=== PATIENT | male | born 1965 ===

== ENCOUNTER 2017-01-03 11:52 | Emergency (ER) | payer SELFPAY ==
[2017-01-03 12:11] VITALS: BP 124/84; PULSE 64; RESP 18; TEMP 97.7; O2SAT 98
[2017-01-03] MEDS ORDERED: Lidocaine 2% Inj (20ml) INFIL STA (12:16)
[2017-01-03] MEDS ORDERED: Tetanus/Diphtheria Toxoids 0.5 ml Syringe IM ONE ×2 (12:16→13:46)
[2017-01-03] MEDS ORDERED: Bacitracin 500 Units/gm Oint Foilpak UD TOP STA (12:17)
[2017-01-03] MEDS ORDERED: Lidocaine 1% Inj (20ml) ONE ×2 (12:47→13:25)
[2017-01-03] MEDS ORDERED: Bacitracin 500 Units/gm Oint Foilpak UD ONE (12:48)
--- NOTE | 2017-01-03 14:03 | C.PDOC ---
History Of Present Illness 51 year old male who presents to the ER for lacerations to his left forearm and right elbow area after a glass window fell on his arms. Patient denies any weakness or numbness of the extremities. Chief Complaint (Nursing): Abnormal Skin Integrity History Per: Patient History/Exam Limitations: no limitations Onset/Duration Of Symptoms: Hrs Current Symptoms Are (Timing): Still Present Location Of Injury: Right: Elbow, Left: Arm Quality Of Symptoms: Other (Laceration) Recent travel outside of the [place]: No Past Medical History Reviewed: Historical Data, Nursing Documentation, Vital Signs Vital Signs: Last Vital Signs Temp 97.7 F 01/03/17 11:57 Pulse 64 01/03/17 11:57 Resp 18 01/03/17 11:57 BP 124/84 01/03/17 11:57 Pulse Ox 98 01/03/17 22:24 - Medical History PMH: No Chronic Diseases Surgical History: No Surg Hx Family History: States: Unknown Family Hx - Social History Hx Alcohol Use: No Hx Substance Use: No - Immunization History Hx Tetanus Toxoid Vaccination: No Review Of Systems Skin: Positive for: Other (Laceration) Neurological: Negative for: Weakness, Numbness Physical Exam - Physical Exam Appears: Non-toxic Skin: Warm, Dry Head: Atraumatic, Normacephalic Extremity: Normal ROM (x4), No Deformity, No Swelling, Other (10cm U shaped skin flap to right elbow, 3cm laceration and small skin flap to left forearm) Pulses: Left Radial: Normal, Right Radial: Normal Neurological/Psych: Oriented x3, Normal Speech, Normal Cognition ED Course And Treatment O2 Sat by Pulse Oximetry: 98 (Room air) Pulse Ox Interpretation: Normal Progress Note: vice president business development called for consult and performed all laceration repairs. Patient was instructed to follow up for wound check and suture removal. Td IM and Keflex po were given. Procedure: Blank - Time Out Time Out: Side verified - Procedure Procedure:: By vice president business development Dr.Bayo Nguyen, left forearm laceration - Consent obtained: Consent obtained: Verbal - Indications Indications(s):: laceration - Contraindications: Contraindications:: None - Anesthetic Technique Anesthetic Technique: Local - Topical: Local/Regional Anesthetic:: Lidocaine 1% - Patient Position Patient Position:: Sitting - Location Location: Left, Forearm - Result Result: Successful (Five 4-0 nylon interupted sutures to the 3 cm left forearm laceration) - Post-Procedure Post-procedure:: Hemostasis achieved, Dressing applied, Neurovascular status nml - Patient Tolerated Procedure Patient Tolerated Procedure:: Well Procedure: Wound Repair - Time Out Time Out: Side verified - Procedure Procedure: Wound Repair: by vice president planning Dr.Bayo Nguyen - Consent Obtained Consent obtained: Verbal - Indications Indication(s):: Laceration - Location Location:: Right, Elbow Shape:: Other (flap) Dimensions Length cm: 10 - Anesthetic Technique Anesthetic Technique: Local Local/Regional Anesthetic:: Lidocaine 1% - Complexity Complexity:: Simple (one layer) - Wound repair method Sutures:: # (12), Size (3-0), Type (nylon), Technique (interupted) - Patient tolerated procedure Patient Tolerated Procedure:: Well Disposition - Disposition Disposition: HOME/ ROUTINE Disposition Time: 14:01 Condition: STABLE Additional Instructions: Follow up with PMD within 1-2 days or return to ED in 2 days for wound check. Suture removal in 14 days. Return to ED immediately if feel worse. Prescriptions: Cephalexin [cephalexin] 500 mg PO Q6 #20 cap Instructions: Care For Your Stitches (ED), Laceration (ED) Forms: [employer] (Azeri), Work Excuse - Clinical Impression Clinical Impression: Laceration - Scribe Statement The provider has reviewed the documentation as recorded by the Scribcindy Lopez All medical record entries made by the Scribe were at my direction and personally dictated by me. I have reviewed the chart and agree that the record accurately reflects my personal performance of the history, physical exam, medical decision making, and the department course for this patient. I have also personally directed, reviewed, and agree with the discharge instructions and disposition.
== END 2017-01-03 14:13 | disposition home or self-care (01) ==
LOC: C.ER 11:52
DX: S51.812A Laceration without foreign body of left forearm, initial encounter (principal); S51.011A Laceration without foreign body of right elbow, initial encounter; W25.XXXA Contact with sharp glass, initial encounter; Y93.89 Activity, other specified; Y92.9 Unspecified place or not applicable